=== PATIENT | female | born 1980 ===

== ENCOUNTER 2018-11-06 09:15 | Emergency (ER) | payer OTHER ==
[2018-11-06 09:17] VITALS: BMI 23.8
[2018-11-06] MEDS ORDERED: Sodium Chloride 0.9% 1,000 ML IV STA (10:04)
--- NOTE | 2018-11-06 10:06 | ED PDOC ---
HPI:Nausea, Vomiting, Diarrhea Time Seen by Provider: 11/06/18 09:33 Chief Complaint (Nursing): Headache Chief Complaint (Provider): Headache, vomiting History Per: Patient History/Exam Limitations: no limitations Onset/Duration Of Symptoms: Hrs Current Symptoms Are (Timing): Still Present Have you had recent travel within the past 21 days to any of the following countries: [place], [place], [place] or [place]?: No Associated Symptoms: Vomiting, Other (headache) Additional History Per: Patient Additional Complaint(s): 38yo female, otherwise well, comes to ER reporting nausea, vomiting and headache since yesterday evening. Her symptoms started with a headache and shortly after dinner, she had episode of vomiting. Patient took Motrin last night with no relief of headache and states the symptoms are still persistent. She reports the headache is posterior and goes into her neck and shoulder; states she feels like she did a heavy workout but denies any exertion recently. No weakness, numbness, fever, chills, chest pain or abdominal pain. PMD: [facility] Past Medical History Reviewed: Historical Data, Nursing Documentation, Vital Signs Vital Signs: Last Vital Signs Temp 97.8 F 11/06/18 09:17 Pulse 76 11/06/18 09:17 Resp 18 11/06/18 09:17 BP 118/76 11/06/18 09:17 Pulse Ox 100 11/06/18 09:17 - Medical History PMH: No Chronic Diseases - Surgical History Surgical History: No Surg Hx - Family History Family History: States: No Known Family Hx - Home Medications Home Medications: Ambulatory Orders Medication Instructions Recorded Ibuprofen [Motrin] 600 mg PO Q6H PRN #20 tab 11/06/18 - Allergies Allergies/Adverse Reactions: Allergies Allergy/AdvReac Type Severity Reaction Status Date / Time No Known Allergies Allergy Verified 11/06/18 09:36 Review of Systems ROS Statement: Except As Marked, All Systems Reviewed And Found Negative Constitutional: Negative for: Fever, Chills, Weakness Eyes: Negative for: Vision Change Gastrointestinal: Positive for: Vomiting Neurological: Positive for: Headache. Negative for: Weakness, Numbness, Dizziness Physical Exam - Reviewed Nursing Documentation Reviewed: Yes Vital Signs Reviewed: Yes - Physical Exam Appears: Positive for: Non-toxic, No Acute Distress Head Exam: Positive for: ATRAUMATIC, NORMAL INSPECTION, NORMOCEPHALIC Skin: Positive for: Normal Color, Warm, DRY Eye Exam: Positive for: EOMI, Normal appearance, PERRL ENT: Positive for: Normal ENT Inspection. Negative for: Pharyngeal Erythema, Tonsillar Exudate, Tonsillar Swelling Neck: Positive for: Normal, Painless ROM, Supple Cardiovascular/Chest: Positive for: Regular Rate, Rhythm, Chest Non Tender Respiratory: Positive for: Normal Breath Sounds. Negative for: Wheezing Pulses-Radial (L): 2+ Pulses-Radial (R): 2+ Gastrointestinal/Abdominal: Positive for: Normal Exam, Soft. Negative for: Tenderness, Guarding, Rebound Back: Positive for: Normal Inspection. Negative for: L CVA Tenderness, R CVA Tenderness Extremity: Positive for: Normal ROM. Negative for: Pedal Edema, Deformity Neurological/Psych: Positive for: Awake, Alert, Symmetric/Intact Strength (5/5 strength all extremities), Oriented (x 3). Negative for: Motor/Sensory Deficits - Laboratory Results Result Diagrams: 11/06/18 10:49 11/06/18 10:49 - ECG O2 Sat by Pulse Oximetry: 100 (RA) Pulse Ox Interpretation: Normal Medical Decision Making Medical Decision Makinyo female with headache, nausea and vomiting, neurologic exam normal Plan: -- Labs -- IV Fluids -- CT Head w/o contrast -- Pepcid 20mg IV -- Zofran 4mg IV 1358 Labs reviewed, no clinically significant abnormalities noted. CT Head FINDINGS: HEMORRHAGE: No intracranial hemorrhage. BRAIN: Normal romano-white matter differentiation and density are appreciated throughout the cerebrum and cerebellum with the brainstem appearing unremarkable as well. There is no mass effect. There is no suspicious extra-axial fluid collection and the midline brain anatomy appears diffusely unremarkable. VENTRICLES: Unremarkable. No hydrocephalus. CALVARIUM: Unremarkable. PARANASAL SINUSES: Unremarkable as visualized. No significant inflammatory changes. MASTOID AIR CELLS: Unremarkable as visualized. No inflammatory changes. OTHER FINDINGS: None. IMPRESSION: Unremarkable unenhanced head CT. On reassessment, patient reports feeling much better and is able to tolerate PO intake. instructed to follow up as an outpatient. Stable for discharge home. Scribe Attestation: Documented by Suzan Frias acting as a scribe for Aries Abad MD. Provider Attestation: All medical record entries made by the Scribe were at my direction and personally dictated by me. I have reviewed the chart and agree that the record accurately reflects my personal performance of the history, physical exam, medi ana decision making, and the department course for this patient. I have also personally directed, reviewed, and agree with the discharge instructions and disposition. Disposition - Clinical Impression Clinical Impression: Headache, Tension headache - Patient ED Disposition Is Patient to be Admitted: No Counseled Patient/Family Regarding: Studies Performed, Diagnosis, Need For Followup - Disposition Disposition: Routine/Home Disposition Time: 14:00 Condition: IMPROVED Additional Instructions: FOLLOW UP WITH YOUR PRIMARY DOCTOR IN 1-2 DAYS RETURN TO THE ER WITH ANY WORSENING OR CONCERNING SYMPTOMS Prescriptions: Ibuprofen [Motrin] 600 mg PO Q6H PRN #20 tab PRN Reason: Pain, Moderate (4-7) Instructions: Headache, Adult (DC) Forms: [facility] (Irish)
[2018-11-06 11:01] LABS: BASO % 0.3 % (0.0-2.0); EOS % 0.6 % (0.0-4.0); HEMOGLOBIN 11.9 g/dL (12.0-16.0); LYMPH % 33.4 % (20.0-40.0); MEAN CELL VOLUME 90.7 fl (81.0-99.0); MEAN CORPUSCULAR HEMOGLOBIN 30.2 pg (27.0-31.0); MEAN CORPUSCULAR HGB CONC 33.3 g/dL (33.0-37.0); MEAN PLATELET VOLUME 9.2 fl (7.2-11.7); MONO # 0.4 K/uL (0.0-0.8); MONO % 6.1 % (0.0-10.0); NEUT # 3.5 K/uL (1.8-7.0); NEUT % 59.6 % (50.0-75.0); NRBC % 0.1 % (0.0-0.0); RBC 3.93 Mil/uL (3.80-5.20); RED CELL DISTRIBUTION WIDTH 13.1 % (11.5-14.5); WHITE BLOOD COUNT 5.8 K/uL (4.8-10.8)
[2018-11-06 11:06] LABS: ALB/GLOB RATIO 1.4 (1.0-2.1); ALBUMIN 4.2 g/dL (3.5-5.0); ALT/SGPT 51 U/L (9-52); AST/SGOT 28 U/L (14-36); BLOOD UREA NITROGEN 11 mg/dl (7-17); CALCIUM 9.2 mg/dL (8.4-10.2); GFR NON-AFRICAN AMERICAN > 60
--- NOTE | 2018-11-06 11:15 | CT ---
Date of service: 11/06/2018 PROCEDURE: CT HEAD WITHOUT CONTRAST. HISTORY: headache COMPARISON: None available. TECHNIQUE: Axial computed tomography images were obtained through the head/brain without intravenous contrast. Radiation dose: Total exam DLP = 851.38 mGy-cm. This CT exam was performed using one or more of the following dose reduction techniques: Automated exposure control, adjustment of the mA and/or kV according to patient size, and/or use of iterative reconstruction technique. FINDINGS: HEMORRHAGE: No intracranial hemorrhage. BRAIN: Normal romano-white matter differentiation and density are appreciated throughout the cerebrum and cerebellum with the brainstem appearing unremarkable as well. There is no mass effect. There is no suspicious extra-axial fluid collection and the midline brain anatomy appears diffusely unremarkable. VENTRICLES: Unremarkable. No hydrocephalus. CALVARIUM: Unremarkable. PARANASAL SINUSES: Unremarkable as visualized. No significant inflammatory changes. MASTOID AIR CELLS: Unremarkable as visualized. No inflammatory changes. OTHER FINDINGS: None. IMPRESSION: Unremarkable unenhanced head CT.
[2018-11-06 13:49] VITALS: BP 102/60
[2018-11-06 14:22] VITALS: PULSE 71; RESP 18; TEMP 97.9
[2018-11-07 07:26] VITALS: O2SAT 100
== END 2018-11-06 14:22 | disposition home or self-care (01) ==
LOC: H.ER 09:15
DX: R51 Headache (principal); G44.209 Tension-type headache, unspecified, not intractable
CPT/HCPCS: 70450; 80053; 81025; 85025; 96361; 96374; 96375; 99285; J1885; J2405; J2765; J7030